=== PATIENT | female | born 1985 | race African-American/Black ===

== ENCOUNTER 2018-11-11 03:44 | Inpatient (IN) | payer MEDICAID ==
[~2018-11-11] VITALS: Ht 154.9 cm; Wt 73.5 kg
[~2018-11-11 03:44] MED LIST: PNV1CAPS17
[2018-11-11] MEDS ORDERED: LACTATED RINGERS 1,000 ML IV SCH (03:47)
[2018-11-11] MEDS ORDERED: PENICILLIN G POTASSIUM 5 MMU in DEXT 5% WATER 100 ML IV SCH (04:00)
[2018-11-11] MEDS ORDERED: CARBOPROST TROMETHAMINE 250 MCG/ML AMPUL IM PRN (04:00)
[2018-11-11] MEDS ORDERED: BUTORPHANOL TARTRATE 2 MG/ML VIAL IV PRN (04:00)
[2018-11-11] MEDS ORDERED: LIDOCAINE HCL 1% 20ML VIAL (Pyxis) INJ INFIL SCH (04:00)
[2018-11-11] MEDS ORDERED: MISOPROSTOL 100MCG TABLET VG SCH (04:00)
[2018-11-11] MEDS ORDERED: METHYLERGONOVINE MALEATE 0.2 MG/ML IM PRN ×2 (04:00→06:30)
[2018-11-11] MEDS: DEXT 5%/LR + PITOCIN 20UNITS/L 1,000 ML IV SCH ×2 (04:35→06:46)
[2018-11-11] MEDS ORDERED: NALOXONE HCL 0.4 MG/ML 1ML VIAL ONE (04:41)
[2018-11-11] MEDS ORDERED: NALOXONE HCL 0.4 MG/ML 1ML VIAL IM PRN (04:45)
[2018-11-11 04:55] LABS: BASOPHILS % 0.4 % (0.0-2.0); EOSINOPHILS % 0.3 % (0.0-5.0); HEMATOCRIT. 38.2 % (36.0-48.0); HEMOGLOBIN. 12.5 g/dL (12.0-16.0); LYMPHOCYTES % 21.9 % (20.0-50.0); MEAN CORPUSCULAR HEMOGLOBIN 29.4 pg (28.0-32.0); MEAN CORPUSCULAR VOLUME 89.9 fL (81.0-99.0); MEAN PLATELET VOLUME 10.8 fl (7.4-10.4); MONOCYTES % 9.3 % (2.0-8.0); NEUTROPHILS % 68.1 % (40.0-76.0); PLATELET 227 x1000/uL (130-400); RED BLOOD CELL COUNT 4.26 mill/uL (4.2-5.4); RED CELL DISTRIBUTION WIDTH 16.5 % (11.6-14.6)
[2018-11-11 04:56] LABS: CLARITY URINE TURBID (CLEAR); KETONES URINE 3+ (NEGATIVE); LEUKOCYTE ESTERASE URINE 1+ (NEGATIVE); NITRITE URINE NEGATIVE (NEGATIVE); OCCULT BLOOD URINE 3+ (NEGATIVE); PH URINE 5.5 (4.5-8.0); PROTEIN URINE 2+ (NEGATIVE); SPECIFIC GRAVITY URINE 1.025 (1.005-1.030)
[2018-11-11 05:00] LABS: CHLORIDE 110 mEq/L (98-107); COLOR URINE BLOODY (YELLOW)
[2018-11-11] MEDS ORDERED: NALOXONE HCL 0.4 MG/ML 1ML VIAL IM NR (05:00)
[2018-11-11 05:04] LABS: INR 0.9; PARTIAL THROMBOPLASTIN TIME 27.1 sec (23.4-31.0); PROTHROMBIN TIME 9.7 sec (9.6-11.0)
[2018-11-11 05:07] LABS: *BARBITURATES SCREEN URINE NEGATIVE (NEGATIVE); *BENZODIAZEPINES SCREEN URINE NEGATIVE (NEGATIVE)
[2018-11-11 05:08] LABS: *COCAINE SCREEN URINE NEGATIVE (NEGATIVE); CANNABINOID URINE SCREEN NEGATIVE (NEGATIVE); METHADONE URINE SCREEN NEGATIVE (NEGATIVE); OPIATES URINE SCREEN NEGATIVE (NEGATIVE); PHENCYCLIDINE URINE SCREEN NEGATIVE (NEGATIVE)
[2018-11-11 05:51] LABS: *AMPHETAMINES SCREEN URINE PRESUMTIVE POSITIVE (NEGATIVE)
[2018-11-11] MEDS ORDERED: DEXT 5%/LR + PITOCIN 20UNITS/L 1,000 ML IV SCH (06:24)
[2018-11-11] MEDS ORDERED: RHO(D) IMMUNE GLOBULIN 300 MCG/SYR IM PRN (06:30)
[2018-11-11] MEDS ORDERED: IBUPROFEN 400MG TABLET PO PRN (06:30)
[2018-11-11] MEDS ORDERED: LANOLIN OINT 7GM TUBE TOP PRN (06:30)
[2018-11-11 06:35] VITALS: BP 131/70
[2018-11-11 07:38] LABS: HEPATITIS B SURFACE ANTIGEN NEGATIVE
[2018-11-11 08:00] VITALS: BP 130/76
[2018-11-11] MEDS ORDERED: PENICILLIN G POTASSIUM 2.5 MMU in DEXTROSE 5% WATER 50 ML IV SCH (08:00)
[2018-11-11] MEDS: PRENATAL VIT/FE FUMARATE/FA TABLET PO SCH (09:54)
[2018-11-11] MEDS: IBUPROFEN 800MG TABLET PO PRN (09:54)
[2018-11-11 16:00] VITALS: BP 127/70
[2018-11-11 19:40] VITALS: BP 127/51
[2018-11-12] MEDS: IBUPROFEN 800MG TABLET PO PRN ×3 (01:52→18:30)
[2018-11-12 05:20] VITALS: BP 130/74
[2018-11-12 06:34] LABS: BASOPHILS % 0.3 % (0.0-2.0); EOSINOPHILS % 0.8 % (0.0-5.0); HEMATOCRIT. 32.6 % (36.0-48.0); HEMOGLOBIN. 10.8 g/dL (12.0-16.0); MEAN CORPUSCULAR HEMOGLOBIN 29.7 pg (28.0-32.0); MEAN CORPUSCULAR VOLUME 89.9 fL (81.0-99.0); MEAN PLATELET VOLUME 10.5 fl (7.4-10.4); MONOCYTES % 8.3 % (2.0-8.0); NEUTROPHILS % 69.6 % (40.0-76.0); PLATELET 209 x1000/uL (130-400); RED BLOOD CELL COUNT 3.62 mill/uL (4.2-5.4); RED CELL DISTRIBUTION WIDTH 16.4 % (11.6-14.6)
[2018-11-12 08:00] VITALS: BP 133/63
[2018-11-12] MEDS: PRENATAL VIT/FE FUMARATE/FA TABLET PO SCH (09:26)
[2018-11-12 16:28] VITALS: BP 115/73
[2018-11-12 22:00] VITALS: BP 108/62
[2018-11-13] MEDS: IBUPROFEN 800MG TABLET PO PRN (02:45)
[2018-11-13 05:56] VITALS: BP 113/71
[2018-11-13 07:45] VITALS: BP 127/73
[2018-11-13] MEDS: PRENATAL VIT/FE FUMARATE/FA TABLET PO SCH (08:01)
== END 2018-11-13 13:30 | disposition home or self-care (01) | DRG 560 ==
LOC: 8 EST LDRP 03:44 → OBSVTOIN 03:44 → 8EST 06:07
PROVIDERS: ADMIT Obstetrics & Gynecology; ATTEND Obstetrics & Gynecology
PROC: 10E0XZZ Delivery of Products of Conception, External Approach (ICD-10-PCS; principal; 2018-11-11)
PROC: 0HQ9XZZ Repair Perineum Skin, External Approach (ICD-10-PCS; 2018-11-11)
DX: O34.219 Maternal care for unspecified type scar from previous cesarean delivery (principal); D62 Acute posthemorrhagic anemia; Z37.0 Single live birth; O71.4 Obstetric high vaginal laceration alone; O69.81X0 Labor and delivery complicated by cord around neck, without compression, not applicable or unspecified; Z3A.39 39 weeks gestation of pregnancy; O77.0 Labor and delivery complicated by meconium in amniotic fluid; O90.81 Anemia of the puerperium; O99.325 Drug use complicating the puerperium; F15.10 Other stimulant abuse, uncomplicated
CPT/HCPCS: 36415; 80305; 80307; 81003; 86592; 86703; 86762; 86850; 86900; 87340; 99281; G0378; J0595; J2310; J2540; J2590; J3490; J7060; A4315

== ENCOUNTER 2019-04-01 12:27 | Emergency (ER) | payer MEDICAID ==
[~2019-04-01] VITALS: Ht 154.9 cm; Wt 77.0 kg
[2019-04-01 14:54] VITALS: BP 122/63
== END 2019-04-01 14:55 | disposition home or self-care (01) ==
LOC: ER 13:15
DX: K04.7 Periapical abscess without sinus (principal)
CPT/HCPCS: 99283